=== PATIENT | female | born 1965 | race Caucasian/White ===

== ENCOUNTER 2016-10-20 18:52 | Emergency (ER) | payer OTHER ==
[2016-10-20 21:38] LABS: BASOPHIL 0.1 % (0-2); EOSINOPHIL 0.7 % (0-5); HCT 42.1 % (37.0-47.0); LYMPHOCYTE 19.3 % (15-48); MCH 30.6 pg (25.0-31.0); MCHC 35.6 g/dL (32.0-36.0); MCV 85.9 fL (78.0-100.0); MONOCYTE 5.3 % (0-12); MPV 9.6 fL (6.0-9.5); NEUTROPHIL 74.6 % (41-80); PLT 333 K/uL (150-400); RDW 13.2 % (11.5-14.0); WBC 11.6 K/uL (4.0-10.5)
[2016-10-20 22:08] LABS: CKMB 1.08 ng/mL (0.97-4.94); TROPONIN T < 0.010 ng/mL
[2016-10-20 22:10] LABS: ALBUMIN 4.5 g/dL (3.5-5.0); BILIRUBIN - TOTAL 0.4 mg/dL (0.1-1.0); GLOBULIN (CALCULATION) 3.3 g/dL (2.2-4.2); POTASSIUM 4.4 mmol/L (3.5-5.1); TOTAL PROTEIN 7.8 g/dL (6.4-8.3)
[2016-10-20 23:51] LABS: FT4 (FREE T4) 0.77 ng/dL (0.93-1.70); TSH (THYROID STIM HORMONE) 24.84 uIU/mL (0.270-4.200)
== END 2016-10-21 00:10 | disposition home or self-care (01) ==
LOC: FER 18:52
PROVIDERS: Emergency Medicine Emergency Medical Services
DX: M25.512 Pain in left shoulder (principal); M25.511 Pain in right shoulder; R06.02 Shortness of breath; E06.3 Autoimmune thyroiditis; I73.00 Raynaud's syndrome without gangrene; Z88.5 Allergy status to narcotic agent; Z79.899 Other long term (current) drug therapy
CPT/HCPCS: 36415; 71010; 80053; 82550; 82553; 84439; 84443; 84484; 85025; 93005; C9113